=== PATIENT | female | born 1955 | race Caucasian/White ===

== ENCOUNTER 2017-05-21 15:15 | Inpatient (IN) | payer OTHER ==
[~2017-05-21] VITALS: Ht 162.6 cm; Wt 83.2 kg
[~2017-05-21 15:15] MED LIST: CYCLOBENZAPRINE5 MG PO; ECO81 PO; PAXIL40 MG PO; SERO100 PO
[2017-05-21 17:17] LABS: BASOPHIL % 0.4 % (0-2); PLATELET COUNT 220 x10^3mcL (130-400); RED CELL DISTRIBUTION WIDTH 14.2 % (11.5-14.5)
[2017-05-21 17:23] LABS: CALCIUM 8.7 mg/dL (8.5-10.1); CARBON DIOXIDE 30.5 mmol/L (21-32); CHLORIDE SERUM 105 mmol/L (98-107); CREATININE SERUM 0.5 mg/dL (0.6-1.0); GFR1 > 60 mL/min; GLUCOSE SERUM 101 mg/dL (74-106); POTASSIUM SERUM 3.6 mmol/L (3.5-5.1); SODIUM SERUM 142 mmol/L (136-145)
[2017-05-21 17:27] LABS: ALKALINE PHOSPHATASE 91 U/L (46-116); ALT/SGPT 28 U/L (14-59); AMYLASE 50 U/L (25-115); AST/SGOT 16 U/L (15-37); BILIRUBIN TOTAL 0.3 mg/dL (0.20-1.00); LIPASE 173 IU/L (73-393); TOTAL PROTEIN, SERUM 6.7 g/dL (6.4-8.2)
[2017-05-21 17:30] LABS: ALBUMIN 3.1 g/dL (3.4-5.0)
[2017-05-21 18:45] LABS: UA SPECIFIC GRAVITY 1.015 (1.005-1.035); microscopic required? YES; urine erythrocyte TRACE (NEGATIVE)
[2017-05-21] MEDS ORDERED: XAN1 PO (20:21)
[2017-05-21] MEDS ORDERED: NORCO1 TA2 PO (20:21)
[2017-05-21] MEDS ORDERED: PAXIL10 MG PO (20:21)
[2017-05-21 20:37] LABS: CHOLESTEROL/HDL RATIO 3.1; MAGNESIUM 1.8 mg/dL (1.8-2.4); PHOSPHOROUS 3.2 mg/dL (2.5-4.9)
[2017-05-21 20:40] LABS: AMPHETAMINE QUAL UR NONE DETECTED (NEG <=1000)
[2017-05-21 20:44] VITALS: BP 158/56
[2017-05-21 20:44] LABS: T3 TOTAL 1.41 ng/mL
[2017-05-21 20:53] LABS: FREE T4 0.81 ng/dL (0.76-1.46); FREE THYROXINE INDEX 1.8 ug/dL (1.4-4.5); T4(THYROXINE) 5.5 ug/dL (4.7-13.3)
[2017-05-21 21:16] VITALS: BP 158/56
[2017-05-21 21:19] VITALS: BP 158/56
[2017-05-22 06:11] LABS: BASOPHIL % 0.4 % (0-2); PLATELET COUNT 199 x10^3mcL (130-400); RED CELL DISTRIBUTION WIDTH 13.9 % (11.5-14.5)
[2017-05-22 06:27] VITALS: BP 155/75
[2017-05-22 06:39] LABS: CALCIUM 8.2 mg/dL (8.5-10.1); CARBON DIOXIDE 28.2 mmol/L (21-32); CHLORIDE SERUM 106 mmol/L (98-107); CREATININE SERUM 0.4 mg/dL (0.6-1.0); GFR1 > 60 mL/min; GLUCOSE SERUM 99 mg/dL (74-106); PHOSPHOROUS 3.4 mg/dL (2.5-4.9); POTASSIUM SERUM 3.5 mmol/L (3.5-5.1); SODIUM SERUM 143 mmol/L (136-145)
[2017-05-22 09:58] VITALS: BP 165/76
[2017-05-22 13:25] VITALS: BP 183/82
[2017-05-22 17:24] VITALS: BP 174/65
[2017-05-22 20:51] VITALS: BP 175/79
[2017-05-22 22:45] VITALS: BP 160/75
[2017-05-23 06:11] VITALS: BP 141/82
[2017-05-23 06:20] LABS: CALCIUM 8.3 mg/dL (8.5-10.1); CARBON DIOXIDE 28.4 mmol/L (21-32); CHLORIDE SERUM 107 mmol/L (98-107); CREATININE SERUM 0.5 mg/dL (0.6-1.0); GFR1 > 60 mL/min; GLUCOSE SERUM 112 mg/dL (74-106); POTASSIUM SERUM 3.6 mmol/L (3.5-5.1); SODIUM SERUM 141 mmol/L (136-145)
[2017-05-23 06:23] LABS: BASOPHIL % 0.5 % (0-2); PLATELET COUNT 204 x10^3mcL (130-400)
[2017-05-23 09:52] VITALS: BP 180/86
[2017-05-23 11:46] VITALS: BP 168/85
[2017-05-23] MEDS ORDERED: REG10 PO (12:58)
[2017-05-23 13:22] VITALS: BP 163/86
[2017-05-23 13:34] VITALS: BP 163/86
[2017-05-23] MEDS ORDERED: ZES20 PO (13:34)
== END 2017-05-23 15:30 | disposition home or self-care (01) | DRG 388 ==
LOC: ED 15:15 → DU 19:54
PROVIDERS: Emergency Medicine; ADMIT Family Medicine Sports Medicine
DX: K56.7 Ileus, unspecified (principal); N17.0 Acute kidney failure with tubular necrosis; F31.30 Bipolar disorder, current episode depressed, mild or moderate severity, unspecified; E44.1 Mild protein-calorie malnutrition; R31.9 Hematuria, unspecified; F12.10 Cannabis abuse, uncomplicated; F19.10 Other psychoactive substance abuse, uncomplicated; F17.210 Nicotine dependence, cigarettes, uncomplicated; F31.9 Bipolar disorder, unspecified; Z68.31 Body mass index [BMI] 31.0-31.9, adult; Z85.3 Personal history of malignant neoplasm of breast; E11.65 Type 2 diabetes mellitus with hyperglycemia
CPT/HCPCS: 82962; 83880; 84439; 94150; J0780; J1170; J1885; J2405; J2550; J2765; J3010; J7030; J7620; Q0092; Q9963

== ENCOUNTER 2018-12-28 03:34 | Inpatient (IN) | payer OTHER ==
[~2018-12-28] VITALS: Ht 162.6 cm; Wt 57.2 kg
[~2018-12-28 03:34] MED LIST changes: +NORCO1 TA2 PO; +PAXIL10 MG PO; +REG10 PO; +XAN1 PO; +ZES20 PO
--- NOTE | 2018-12-28 03:58 | NUR ---
PT BIB [facility] FOR C/O OF ALOC. PER MEDICS THEY WERE CALLED BY PD AND FOUND PT IN THE GRASS IN FRONT OF HER HOUSE. PER MEDICS PT HAD TAKEN AN UNKNOWN AMOUNT OF PAROXETINE AND ALCOHOL IN ATTMEPTS TO HURT HERSELF. PER MEDICS PTS BG WAS 69 ON SCENE SO THEY GAVE 17MG OF ORAL GLUCOSE AND REPORT PTS BG INCREASED TO 80. UPON ARRIVAL PT SLEEPING ON GURNEY AND PLACED INTO ROOM 4 IN FULL VIEW OF NURSING STATION. PT IS A/O X3 AND UNLABLE TO RECALL HOW MUCH PAROXETINE AND ALCOHOL SHE HAD. PT HAS A GCS OF 14. PT ADMITS SHE WAS TRYING TO HURT HERSELF BY OVERDOSING ON PAROXETINE AND ALCOHOL AND WHEN ASKED WHY STATES "THERE IS A LOT GOING ON" WITH SLOW,SLURRED SPEECH. PT IS NOT REPORTING ANY PAIN AT THIS TIME. SLY CALIXTO AT BEDSIDE TO PLACE PT ON 5150 HOLD. PT PLACED ON FULL MONOGRAM MAKER AND 4L OF O2 VIA NASAL CANULA FOR A O2.
[2018-12-28 04:20] LABS: BASOPHIL % 0.4 % (0-2); PLATELET COUNT 225 x10^3mcL (130-400)
[2018-12-28 04:21] LABS: RED CELL DISTRIBUTION WIDTH 14.9 % (11.5-14.5)
[2018-12-28 04:31] LABS: CALCIUM 9.2 mg/dL (8.5-10.1); CARBON DIOXIDE 23.5 mmol/L (21-32); CHLORIDE SERUM 113 mmol/L (98-107); CREATININE SERUM 0.4 mg/dL (0.6-1.0); GFR1 > 60 mL/min; GLUCOSE SERUM 91 mg/dL (74-106); POTASSIUM SERUM 3.7 mmol/L (3.5-5.1); SODIUM SERUM 152 mmol/L (136-145)
--- NOTE | 2018-12-28 04:32 | NUR ---
SPOKE TO CHRISTOPHER WITH POISON CONTROL AND HIS RECOMMENDATION IS TO DRAW FULL LABS WITH ALCOHOL, TYLENOL, AND SALICYLATE. ALONG WITH A DRUG SCREEN AND MONITOR PT FOR 6 HRS.
[2018-12-28 04:47] LABS: ALBUMIN 3.9 g/dL (3.4-5.0); ALKALINE PHOSPHATASE 74 U/L (46-116); ALT/SGPT 21 U/L (14-59); AST/SGOT 24 U/L (15-37); BILIRUBIN TOTAL 0.27 mg/dL (0.20-1.00); T4(THYROXINE) 5.2 ug/dL (4.7-13.3); TOTAL PROTEIN, SERUM 7.4 g/dL (6.4-8.2)
--- NOTE | 2018-12-28 05:33 | NUR ---
PT JOSHUA REMOVED AND PLACED IN RADIO ROOM.
--- NOTE | 2018-12-28 07:19 | NUR ---
RECIEVED REPORT FROM NIGHT RENATO OCASIO. AT BEDSIDE PT SLEEPING BUT EASILY AROUSABLE, CHEST RISE AND FALL VISIBLE. UPDATED VITALS.
--- NOTE | 2018-12-28 09:12 | NUR ---
PT SEEN TRYING TO GET OUT OF BED, GUIDED PT BACK INTO BED SAFELY. PT SP02 DROPPED DR. TURPIN MADE AWARE.PT PLACED ON 02. PT SOUNDS CONGESTED. DR. TURPIN MADE AWARE, NEW ORDERS IN PLACE.
--- NOTE | 2018-12-28 09:57 | NUR ---
CXR AT BEDSIDE PT LETHARGIC BUT HAS A GAG REFLEX, PT ON CM SEE VITALS
--- NOTE | 2018-12-28 09:58 | NUR ---
URINE NOT DIPPED I SENT IT FOR EMMA
--- NOTE | 2018-12-28 10:07 | NUR ---
PT SLEEPING BUT EASILY AROUSABLE. PT IN DIRECT VIEW OF NURSES STATION. CHEST RISE AND FALL VISIBLE. PT DID NOT EAT BREAKFAST. SKIN IS PINK, WARM AND DRY. HR=76 SP02= 95% ON 2L NC. RR=18
[2018-12-28 10:13] LABS: microscopic required? YES; urine erythrocyte 2+ (NEGATIVE)
--- NOTE | 2018-12-28 10:19 | NUR ---
DR. TURPIN AT BEDSIDE UPDATING PT ON PLAN OF CARE. PT VERBALIZES UNDERSTANDING. PT AAOX4, RESPS E/U, SKIN IS PINK, WARM AND DRY.
--- NOTE | 2018-12-28 10:30 | NUR ---
MEDICATED PT PER MD ORDERS. PT VERBALIZES UNDERSTANDING. PT COUGHING, SOUND CONGESTED.
--- NOTE | 2018-12-28 10:32 | NUR ---
RT AT BEDSIDE.
--- NOTE | 2018-12-28 11:04 | NUR ---
PT O2 SATS DROPPED AGAIN. PT PLACED ON HIGH-FOWLERS AND PLACE ON A NON-REBREATHER. DR. TURPIN MADE AWARE. NO NEW ORDERS AT THIS MOMENT.
--- NOTE | 2018-12-28 11:46 | NUR ---
PT STILL IN HIGH FOWLERS. SLEEPING BUT EASILY AROUSABLE IN DIRECT VIEW OF NURSES STATION.
--- NOTE | 2018-12-28 12:01 | NUR ---
PT NODDING OFF. AAOX4, RESPS E/U, SKIN IS PINK, WARM AND DRY. BED RAILS UP X2 FOR SAFETY.
--- NOTE | 2018-12-28 12:03 | NUR ---
PT NOTED TO HAVE YELLOW CLEAR EMESIS ON SIDE OF BED AND ON GOWN, PT AND GURNEY SHEETS CHANGED, PT CLEANED. PLACED BACK ON FULL CM, IV TO R WRIST PATENT, DR TURPIN MADE AWARE OF VOMITING, ORDERS PENDING, RENATO MANZANO ASSISTED WITH PT, PT IN POSITION OF COMFORT, CALL LIGHT WITHIN REACH, IN FULL VIEW FROM NURSES STATION, CURTAINS FULLY OPEN, PLACED 10L O2 VIA ON FACE MASK, TOLERATING WELL.
--- NOTE | 2018-12-28 12:26 | NUR ---
PT MEDICATED PER EMAR.
[2018-12-28 13:56] LABS: AMPHETAMINE QUAL UR NONE DETECTED (See below)
--- NOTE | 2018-12-28 14:36 | NUR ---
PT SLEEPING BUT EASILY AROUSABLE IN DIRECT VIEW OF NURSES STATION. PT SLEEPING ON LEFT SIDE. CHEST RISE AND FALL VISIBLE.
--- NOTE | 2018-12-28 15:50 | NUR ---
PT RESTING IN POSITION OF COMFORT. SLEEPING BUT EASILY AROUSABLE ON FULL MONITOR IN DIRECT VIEW OF NURSES STATION.
--- NOTE | 2018-12-28 17:58 | NUR ---
DR. MOCK AT BEDSIDE FOR REASSESMENT. NEW ORDERS IN PLACE. PT STILL DROWSY, BUT AAOX4.
--- NOTE | 2018-12-28 18:16 | NUR ---
RT AT BEDSIDE DOING TREATMENTS. ALSO, XRAY. PT DROWSY.
--- NOTE | 2018-12-28 18:20 | NUR ---
PER PT "I'M NOT OXYGEN AT HOME" ALSO, REPORTS HAVING COPD AND EMPHYSEMA. USES INHALERS TO TREAT AT HOME. DR. MOCK MADE AWARE.
--- NOTE | 2018-12-28 18:34 | NUR ---
PER DR. MOCK PLACE PT ON BI-PAP. RT AT BEDSIDE SETTING UP.
--- NOTE | 2018-12-28 18:35 | NUR ---
PT REMOVED BI-PAP MASKED. REPORTS "I HAVE TO PEE" EXPLAINED TO PT THAT SHE HAS A LAL CATH IN PLACE.
--- NOTE | 2018-12-28 18:38 | NUR ---
PT REMOVED BI-PAP MASK AGAIN. UTILIZED PILLOWS TO PROP PT TO HAVE HER NO REMOVE MASK.
--- NOTE | 2018-12-28 18:40 | NUR ---
PT REMOVED BI-PAP MASK OFF AGAIN. PER DR. NISH MARX TO APPLY SOFT RESTRAINTS IN ORDER FOR PROPER TREATMENT.
--- NOTE | 2018-12-28 18:50 | NUR ---
APPLICATION OF BILATERAL SOFT WRIST RESTRAINTS INITIATED.
--- NOTE | 2018-12-28 18:55 | NUR ---
RESTRAINT FORM IN PATIENT CHART.
--- NOTE | 2018-12-28 19:12 | NUR ---
RECEIVED PT REPORT FROM YOLA GROSS. I WILL NOW ASSUME PRIMARY CARE OF PT
--- NOTE | 2018-12-28 19:13 | NUR ---
HAND-OFF REPORT TO RENATO SAUCEDA.
--- NOTE | 2018-12-28 19:46 | NUR ---
PATIENT IS RESTLESS ROLLING AROUND IN THE BED, TRYING TO REMOVE THE BIPAP. RESPIRATORY AT THE BEDSIDE DOING ABG.
--- NOTE | 2018-12-28 19:59 | NUR ---
PT SEEN PULLING BIPAP MASK OFF FROM HER FACE,WHEN APPRACHED PT , PT STATED SHE NEEDED TO THROW UP. PT PROVIDED WITH EMESIS BAG AND PT VOMITED APPROX 30ML OF YELLOW CLEAR BILE. PT WAS THEN CLEANED UP, CHANGED INTO CLEAN GOWN AND REPLACED BIPAP ON PT AND REPOSITIONED FOR COMFORT.
--- NOTE | 2018-12-28 20:36 | NUR ---
PATIENT VOMITED BILE FLUID. ,LINEN AND GOWN CHANGED. PATIET IS RESTLESS ROLLING AROUND IN BED. ZOFRAN GIVEN. PATIENT REQUESTED SHARON LYONS MD ON SAME. ICE IRASEMA WAS GIVEN.
--- NOTE | 2018-12-28 20:40 | NUR ---
PATIENT REMAINS ON THE BI-PAP. OXYGEN SATURATION DECREASES TO THE 80'S WHEN PATIENT TAKES IT OFF. PATIENT IS RESTLESS, INSTRUCTED TO LEAVE THE BIPAP ON.
--- NOTE | 2018-12-28 21:18 | NUR ---
TITRATED FIO2 VIA BIPAP TO 70% PER ABG pO2 RESULT OF 164.4. SPO2 98%.
--- NOTE | 2018-12-28 22:00 | NUR ---
PATIENT REMOVED THE BIPAP. SATURATION 875. PATIENT IS DROWSY, RESTLESS PUTTING HER LEGS OVER THE BEDRAIL. MD WANTS SET UP FOR INTUBATION.
--- NOTE | 2018-12-28 22:10 | NUR ---
MD, RESPIRATORY, NURSE AND LUNA AT THE BEDSIDE. PATIENT BAGGED. ETOMODATE GIVEN IVP.
--- NOTE | 2018-12-28 22:11 | NUR ---
PATIENT MEDICATED NSHG000 MG SUCCINYLCHOLINE IVP
--- NOTE | 2018-12-28 22:12 | NUR ---
DR OLIVO AT BEDSIDE FOR INTUBATION.
--- NOTE | 2018-12-28 22:13 | NUR ---
ETOMIDATE 20 MG IVP.
--- NOTE | 2018-12-28 22:41 | NUR ---
PATIENT IS AGITATED, TRYING TO SIT UP IN THE BED. DRIPOVAN DRIP STARTED. BILATERAL WRIST RESTRAINTS APPLIED.
[2018-12-28 23:20] VITALS: BP 185/106
[2018-12-28 23:31] VITALS: BP 185/106
--- NOTE | 2018-12-28 23:40 | NUR ---
SALINE LOCK INSERTED IN THE LEFT AC FOR THE CTA.
[2018-12-29] VITALS (18 sets, daily range): BP systolic 116–197; BP diastolic 70–110
--- NOTE | 2018-12-29 00:06 | NUR ---
NG TUBE IBSERTED ORALLY, PATIENT GAGING, BLIE FLUID SUCTION ORALLY AND FROM THE NG TUBE. PLACEMENT CHECK BY ASCULTATION. PATIENT MEDICATED WITH LABATELOL FOR ELIVATED BLOOD PRESSURE.
--- NOTE | 2018-12-29 00:41 | NUR ---
PATIENT HAD CTA DONE AND RETURN TO THE ROOM.
--- NOTE | 2018-12-29 01:20 | NUR ---
REPORT WAS GIVEN TO JUANITA. PATIENT TRANSPORTED TO ROOM ICU# 3. DRIPIVAN INFUSINF @ 50 MCG/MIN.
--- NOTE | 2018-12-29 01:20 | NUR ---
PT TRANSFERRED FROM ER VIA [facility] ACCOMPANIED BY RN, EMT, AND RT. PT TRANSFERRED TO ICU BED WITH FULL ASSIST. PT INTUBATED AND SEDATED ON PROPOFOL 55 MCG/KG/HR WITH RSS 5. PERRLA NOTED. 7.5 ETT SECURED AT [address] TRACHEA MIDLINE. NO JVD NOTED. OGT INTACT AND SECURED. EENT FREE OF DISCHARGE. VAP CARE PROVIDED. ETT TO VENT: AC MODE RATE 12, TV 450, PEEP 5, FIO2 50%. RESPS E/U. CHEST RISE EQUAL AND SYMMETRICAL. LUNG SOUNDS CTA. MULTIMEDIA AUTHOR IN PLACE, NSR WITH HR 80, BP 156/106 MAP 131. PT WITH EPISODES OF ELEVATED BP, DR MIXON MADE AWARE. CHEST WALL STABLE. PULSES PALPABLE X4. CAP REFILL <3 SECS. NO EDEMA NOTED. GEN WEAKNESS NOTED. TURNED AND REPOSITIONED Q2H. BUE SOFT WRIST RESTRAINTS IN PLACE FOR PT SAFETY.ABD FLAT, SOFT, NONTENDER TO TOUCH. BOWEL SOUNDS HYPOACTIVE. F/C INTACT AND DRAINING VIA GRAVITY YELLOW URINE. NO VAGINAL BLEEDING OR DISCHARGE NOTED. SKIN WARM DRY TO TOUCH. SKIN INTACT. ALL NEEDS MET AT THIS TIME. WILL CONTINUE TO MONITOR.
--- NOTE | 2018-12-29 01:45 | NUR ---
DR MIXON AT BEDSIDE, UPDATED ON STATUS, ALL QUESTIONS AND CONCERNS ADDRESSED.
--- NOTE | 2018-12-29 03:30 | NUR ---
PT TAKEN TO CT VIA [facility] ACCOMPANIED BY RT AND CREW CHIEF. PT TRANSFERRED BACK SAFELY WITH NO ADVERSE EVENTS.
[2018-12-29 04:19] LABS: PHOSPHOROUS 5.1 mg/dL (2.5-4.9)
[2018-12-29 04:20] LABS: CHOLESTEROL/HDL RATIO 2.4
--- NOTE | 2018-12-29 04:30 | NUR ---
RSS 5, PROPOFOL TITRATED TO 45 MCG/KG/HR.
--- NOTE | 2018-12-29 04:36 | NUR ---
PROPOFOL TITRATED TO 50 MCG/KG/HR.
--- NOTE | 2018-12-29 06:32 | NUR ---
PT VOMIT SMALL AMT BILE COLORED FROM MOUTH. ZOFRAN IVP GIVEN. DR MIXON MADE AWARE.
[2018-12-29 06:33] LABS: CALCIUM 9.7 mg/dL (8.5-10.1); CARBON DIOXIDE 27.7 mmol/L (21-32); CHLORIDE SERUM 104 mmol/L (98-107); CREATININE SERUM 0.4 mg/dL (0.6-1.0); GFR1 > 60 mL/min; GLUCOSE SERUM 224 mg/dL (74-106); MAGNESIUM 1.6 mg/dL (1.8-2.4); PHOSPHOROUS 2.8 mg/dL (2.5-4.9); POTASSIUM SERUM 3.6 mmol/L (3.5-5.1); SODIUM SERUM 141 mmol/L (136-145)
[2018-12-29 06:36] LABS: PLATELET COUNT 223 x10^3mcL (130-400)
[2018-12-29 07:23] LABS: RED CELL DISTRIBUTION WIDTH 14.8 % (11.5-14.5)
--- NOTE | 2018-12-29 07:30 | NUR ---
PATIENT IN BED, BED TO THE LOWEST POSITION. PATIENT IS INTUBATED AND ON AC MODE AT A RATE OF 12, TIDAL VOLUME OF 450, FIO2 OF 50% AND PEEP OF 5. PATIENT IS BREATHING ADEQUATELY AND THERE ARE NO SIGNS OF RESPIRATORY DISTRESS. COTTON ROLL PACKER IN PLACE, NSR. PATIENT HAS BILATERAL SOFT WRIST RESTRAINTS NOTED. IV ACCESS NOTED TO LFA X2. PATIENT IS SEDATED ON PROPOFOL INFUSING AT 45 MCG/KG/MIN, RSS:5. PATIENTS ABD IS SOFT AND FLAT. HEELS OFF LOADED WITH PILLOWS. PATIENT STABLE, WILL CONTINUE TO MONITOR.
--- NOTE | 2018-12-29 10:11 | NUR ---
PATIENT VOMMITED LIQUID/ GREEN IN COLOR. PATIENT CLEANSED, LINENS CHANGED, HOB ELEVATED, AND PATIENT REPOSITIONED. PATIENTS BACK AND SKIN FULLY ASSESSED, NO WOUNDS NOTED AND SKIN INTACT. PATIENTS HEELS OFFLOADED WITH PILLOWS. PATIENT STABLE, WILL CONTINUE TO MONITOR.
--- NOTE | 2018-12-29 10:11 | NUR ---
PATIENT HAS 2 RINGS, TAKEN OFF AND PLACE AT BEDSIDE IN CONTAINER.
--- NOTE | 2018-12-29 11:32 | NUR ---
LOWERED PATIENTS PROPOFOL TO 40 MCG/KG/MIN. PATIENT STABLE, WILL CONTINUE TO MONITOR.
--- NOTE | 2018-12-29 11:45 | NUR ---
POISON CONTROLLED CALLED AT THIS TIME, ALL UPDATES PROVIDED. THEY RECOMMEND, SUPPORTIVE CARE AND IF THE PATIENT UNDERGOES A SEIZURE, TO HAVE BENZOS GIVEN. NO FURTHER ORDERS OR RECOMMENDATIONS AT THIS TIME. PATIENT STABLE, WILL CONITNUE TO MONITOR.
--- NOTE | 2018-12-29 13:30 | NUR ---
PATIENT REPOSITIONED AT THIS TIME. SKIN ASSESSED. NO WOUNDS NOTED.
[2018-12-29 14:28] LABS: BAND NEUTROPHIL 16 % (0-10); MONOCYTE 4 % (0-7); SEGMENTED NEUTROPHILS 75 % (37-75)
[2018-12-29 14:29] LABS: PLATELET MORPHOLOGY PLATELETS NORMAL; rbc morphology (normal/abnorm) NORMAL (NORMAL)
--- NOTE | 2018-12-29 15:15 | NUR ---
TUBE FEEDING INITIATED AT THIS TIME. VITAL AF. 10 ML/HR WITH 50 FWF Q4. WILL CONTINUE TO MONITOR.
--- NOTE | 2018-12-29 16:18 | NUR ---
PATIENT REMOVED OGT AT THIS TIME. PATIENT ASSESSED, PATIENT STABLE, WILL INSERT NEW OGT.
--- NOTE | 2018-12-29 16:25 | NUR ---
NEW OGT INSERTED AT THIS TIME, XRAY ORDERED, FOR PLACEMENT VERIFICATION.
--- NOTE | 2018-12-29 16:28 | NUR ---
PATIENT REMOVED OGT AT THIS TIME. PATIENT ASSESSED, VITALS STABLE, PATIENT STABLE. WILL REPUT IN NEW OGT.
--- NOTE | 2018-12-29 16:53 | NUR ---
INCREASED SEDATION TO 45 MCG/KG/MIN. PATIENT RESTLESS, AND TRYING TO PULL TUBES. WILL CONTINUE TO MONITOR.
--- NOTE | 2018-12-29 19:05 | NUR ---
REPORT GIVEN TO RENATO GRANT. ALL QUESTIONS ANSWERED.
--- NOTE | 2018-12-29 19:35 | NUR ---
PT INTUBATED AND SEDATED ON PROPOFOL 45 MCG/KG/HR WITH RSS 4. PERRLA NOTED. 7.5 ETT SECURED AT [address] TRACHEA MIDLINE. NO JVD NOTED. OGT INTACT AND SECURED. EENT FREE OF DISCHARGE. VAP CARE PROVIDED. ETT TO VENT: AC MODE RATE 12, TV 450, PEEP 5, FIO2 50%. RESPS E/U. CHEST RISE EQUAL AND SYMMETRICAL. LUNG SOUNDS CLEAR BUL, DIM BASES. LEARNING PROGRAM MANAGER IN PLACE, ST WITH HR 109, BP 157/87 MAP 109. CHEST WALL STABLE. PULSES PALPABLE X4. CAP REFILL <3 SECS. NO EDEMA NOTED. GEN WEAKNESS NOTED. TURNED AND REPOSITIONED Q2H. BUE SOFT WRIST RESTRAINTS IN PLACE FOR PT SAFETY.ABD FLAT, SOFT, NONTENDER TO TOUCH. BOWEL SOUNDS HYPOACTIVE. F/C INTACT AND DRAINING VIA GRAVITY YELLOW URINE. NO VAGINAL BLEEDING OR DISCHARGE NOTED. SKIN WARM DRY TO TOUCH. SKIN INTACT. ALL NEEDS MET AT THIS TIME. WILL CONTINUE TO MONITOR.
--- NOTE | 2018-12-29 23:00 | NUR ---
TF TITRATED TO 20ML/HR, GRV=0
[2018-12-30] VITALS (19 sets, daily range): BP systolic 77–144; BP diastolic 41–77; Ht 162.6 cm; Wt 57.2 kg
--- NOTE | 2018-12-30 01:00 | NUR ---
TIM RT TITRATED FIO2 TO 30%.
--- NOTE | 2018-12-30 03:35 | NUR ---
TF TITRATED TO 30ML/HR, GOAL MET. GRV=0.
--- NOTE | 2018-12-30 05:30 | NUR ---
TOTAL BED BATH PROVIDED, LINENS CHANGED. F/C CARE PROVIDED. REPOSITIONED AT THIS TIME.
[2018-12-30 05:34] LABS: BASOPHIL % 0.2 % (0-2); PLATELET COUNT 180 x10^3mcL (130-400)
[2018-12-30 05:36] LABS: RED CELL DISTRIBUTION WIDTH 14.8 % (11.5-14.5)
[2018-12-30 05:54] LABS: CALCIUM 10.1 mg/dL (8.5-10.1); CARBON DIOXIDE 28.4 mmol/L (21-32); CHLORIDE SERUM 107 mmol/L (98-107); CREATININE SERUM 0.4 mg/dL (0.6-1.0); GFR1 > 60 mL/min; GLUCOSE SERUM 117 mg/dL (74-106); MAGNESIUM 2.1 mg/dL (1.8-2.4); PHOSPHOROUS 2.7 mg/dL (2.5-4.9); POTASSIUM SERUM 3.6 mmol/L (3.5-5.1); SODIUM SERUM 145 mmol/L (136-145)
--- NOTE | 2018-12-30 06:46 | NUR ---
DR BANSAL AT BEDSIDE, UPDATED ON STATUS, MADE AWARE REGARDING ELEVATED BUN WITH IVF NS @ 20ML. ORDER CHANGED TO NS @ 50 ML/HR.
--- NOTE | 2018-12-30 08:00 | NUR ---
INITIAL SHIFT ASSESSMENT DONE (SEE ASSESSMENT PART). SEDATED WITH PROPOFOL DRIP, TOLERATING WELL. OCCASIONAL AGITATION NOTED. ON VENTILATOR, TOLERATING CURRENT SETTINGS WELL. O2 SAT 96%. ST ON MONITOR. SBP IN 120'S-140'S. NO ECTOPY NOTED. ON TUBE FEEDING VIA OGT, TOLERATING WELL. NO RESIDUALS NOTED. HOB ELEVATED. ON BILATERAL SOFT WRIST RESTRAINTS. UPDATED OF PLAN OF CARE. WILL CONTINUE TO MONITOR.
--- NOTE | 2018-12-30 09:37 | NUR ---
PATIENT ROUNDS WITH DR. UMANA AND RESIDENTS. CHARGE NURSE AND PRIMARY NURSE AT BEDSIDE. UPDATES PROVIDED AND POC DISCUSSED.
--- NOTE | 2018-12-30 10:00 | NUR ---
BECOMES RESTLESS AT THIS TIME. PROPOFOL DRIP INCREASE TO 50 MCG/KG/MIN. WILL CONTINUE TO MONITOR.
--- NOTE | 2018-12-30 12:00 | NUR ---
REASSESSMENT DONE. NEURO STATUS STILL THE SAME. NO SIGNS OF PAIN. OCCASIONAL AGITATION NOTED. TOLERATING CURRENT VENTILATOR SETTINGS WELL. O2 SAT 96-97%. ST ON MONITOR. SBP IN 110'S-150'S. NO ECTOPY NOTED. TOLERATING TUBE FEEDING WELL. NO RESIDUALS NOTED. HOB ELEVATED. UPDATED OF PLAN OF CARE. WILL CONTINUE TO MONITOR.
--- NOTE | 2018-12-30 13:08 | NUR ---
DR QUEEN IS IN THE ROOM. UPDATED OF STATUS. NEW ORDERS RECEIVE.
--- NOTE | 2018-12-30 13:31 | NUR ---
VERSED AND FENTANYL DRIP STARTED AT THIS TIME AND PROPOFOL DRIP D/C PER DR QUEEN'S ORDER. WILL CONTINUE TO MONITOR.
--- NOTE | 2018-12-30 13:35 | NUR ---
SON AND [id number]-[id number]-IBN ARE IN THE ROOM. UPDATED OF STATUS AND PLAN OF CARE.
--- NOTE | 2018-12-30 14:00 | NUR ---
RESTING IN BED. NO SIGNS OF PAIN. OCCASIONAL AGITATION NOTED. TOLERATING VENTILATOR WELL. O2 SAT 94-99%. ST ON MONITOR. SBP IN 130'S-160'S. NO ECTOPY NOTED. HOB ELEVATED. WILL CONTINUE TO MONITOR.
--- NOTE | 2018-12-30 15:00 | NUR ---
MOM IS IN THE ROOM. UPDATED OF STATUS AND PLAN OF CARE.
--- NOTE | 2018-12-30 15:50 | NUR ---
SISTER OF THE PATIENT IS IN THE ROOM. UPDATED OF STATUS AND PLAN OF CARE.
--- NOTE | 2018-12-30 16:00 | NUR ---
REASSESSMENT DONE. NEURO STATUS UNCHANGED. OCCASIONAL AGITATION NOTED. NO SIGNS OF PAIN. TOLERATING CURRENT VENTILATOR SETTINGS WELL. O2 SAT 95-96%. ST ON MONITOR. SBP IN 130'S-160'S. NO ECTOPY NOTED. HOB ELEVATED. TOLERATING TUBE FEEDING WELL. RESIDUALS OF 15 ML. UPDATED OF PLAN OF CARE. WILL CONTINUE TO MONITOR.
--- NOTE | 2018-12-30 18:00 | NUR ---
SLEEPING BUT EASILY AROUSABLE. NO SIGNS OF PAIN. OCCASIONAL AGITATION NOTED. TOLERATING VENTILATOR WELL. O2 SAT 95-97%. ST ON MONITOR. SBP IN 90'S-110'S. NO ECTOPY NOTED. HOB ELEVATED. WILL CONTINUE TO MONITOR.
--- NOTE | 2018-12-30 19:05 | NUR ---
REPORT GIVEN TO INCOMING COMPLIANCE INVESTIGATOR RN, RENATO ROCHE.
--- NOTE | 2018-12-30 19:05 | NUR ---
RECEIVED REPORT FROM GUERA GROSS. ALL QUESTIONS ANSWERED AND ADDRESSED. WILL RESUME CARE OF PT.
--- NOTE | 2018-12-30 21:26 | NUR ---
PT BP OF 69/35 (48). INITIATING 1L BOLUS[address] DR. YBARRA MADE AWARE. LEVOPHED ORDER PRN. WILL CONT TO MONITOR.
--- NOTE | 2018-12-30 21:37 | NUR ---
LEVOPHED INITIATED @ 2MCG/MIN TO ACHIEVE MAP >65. BP = 71/44 (55). FENTANYL AND VERSED OFF AT THIS TIME. WILL CONT TO MONITOR.
--- NOTE | 2018-12-30 22:06 | NUR ---
BP = 83/47 (6). TITRATED LEVOPHED TO 4MCG/MIN TO ACHIEVE MAP 65>. WILL CONT TO MONITOR
--- NOTE | 2018-12-30 22:28 | NUR ---
SEDATION INITIATED DUE TO PT BEING RESTLESS AND ANXIOUS. VERSED @ 1MG/HR AND FENTANYL @ 1MCG/KG/HR TO ACHIEVE RSS = 4.
[2018-12-31] VITALS (9 sets, daily range): BP systolic 78–106; BP diastolic 36–58
--- NOTE | 2018-12-31 00:01 | NUR ---
DR. ARROYO AT BEDSIDE ASSESSING PT. PER DR. MIXON, STOP THE LEVOPHED AND GIVE PT 1L BOLUS TO SEE IF MAP MAINTAINS ABOVE 65.
[2018-12-31 06:10] LABS: BASOPHIL % 0.3 % (0-2); PLATELET COUNT 148 x10^3mcL (130-400)
[2018-12-31 06:13] LABS: RED CELL DISTRIBUTION WIDTH 14.8 % (11.5-14.5)
[2018-12-31 06:14] LABS: CALCIUM 8.2 mg/dL (8.5-10.1); CARBON DIOXIDE 30.9 mmol/L (21-32); CHLORIDE SERUM 110 mmol/L (98-107); CREATININE SERUM 0.3 mg/dL (0.6-1.0); GFR1 > 60 mL/min; GLUCOSE SERUM 101 mg/dL (74-106); MAGNESIUM 1.8 mg/dL (1.8-2.4); PHOSPHOROUS 2.7 mg/dL (2.5-4.9); POTASSIUM SERUM 3.2 mmol/L (3.5-5.1); SODIUM SERUM 146 mmol/L (136-145)
--- NOTE | 2018-12-31 07:10 | NUR ---
CRX AT BEDSIDE.
--- NOTE | 2018-12-31 07:28 | NUR ---
GIVEN REPORT TO CHUYITA GROSS. ALL QUESTIONS ANSWERED AND ADDRESSED. WILL ENDORSECARE.
--- NOTE | 2018-12-31 08:25 | NUR ---
PLACED PT ON CPAP +5 WITH PSV +12 AND FIO2 30%.
--- NOTE | 2018-12-31 08:30 | NUR ---
FENTANYL AND VERSED PAUSED, DARRELL RT PUT PT ON CPAP TO TRIAL FOR EXTUBATION. TUBE FEEDING PAUSED.
--- NOTE | 2018-12-31 09:29 | NUR ---
RESPIRATORY THERAPY STUDENT AT BEDSIDE DRAWING ABG ON LEFT RADIAL ARTERY, DARRELL FRIEDMAN SUPERVISING.
--- NOTE | 2018-12-31 10:44 | NUR ---
PROVIDED UPDATES OF PT STATUS AND VITAL SIGNS TO DAVID FROM POSION CONTROL. PER DAVID WILL CALL BACK LATER IN DAY FOR MORE UPDATES, HE DID NOT HAVE ANY RECOMMENDATION.
--- NOTE | 2018-12-31 10:48 | NUR ---
DARRELL RT, TACO RN, AND RT STUDENT AT BEDSIDE, PT EXTUBATED AT 10:48. OXYGEN SATURATION IS 100%, RESPIRATORY RATE 13. BREATH SOUNDS AUSCULTATED, NO STRIDOR. BREATH SOUNDS CLEAR BUT DIMINISHED, PT EDUCATED ON USING ORAL SUCTION DEVICE TO HELP CLEAR SECRETIONS, PT VERBALIZED UNDERSTANDING. DR. QUEEN AND TACO RN INSTRUCTED PT TO USE IS DEVICE EVERY HOUR. PT VERBALIZED UNDERSTANDING AND DID RETURN DEMONSTRATION OF IS DEVICE.
--- NOTE | 2018-12-31 11:17 | NUR ---
MAINTENANCE 0.9% NS TO BE TURNED DOWN TO 80 MLS/HR PER DR. QUEEN AFTER 1000ML BOLUS.
--- NOTE | 2018-12-31 12:42 | NUR ---
DR. BANSAL IS AT BEDSIDE TALKING TO THE PATIENT AND INFORMED THAT PO MEDS SCHEDULED AT 1200 AND 1400 WILL BE POSTPONED UNTIL BEDSIDE SWALLOW SCREEN IS IMPLEMENTED. DOCTOR AGREES WITH THAT.
--- NOTE | 2018-12-31 12:43 | NUR ---
DR. BANSAL AT BEDSIDE ASSESSING PT AND UPDATING PT ON HOLD STATUS, TOLD HER A PSYACHRIST WILL COME TO DO AN EVALUATION.
--- NOTE | 2018-12-31 13:54 | NUR ---
Initial Nutrition Assessment: IC03/A USAMA AGUILAR HR Dx: Chief complaint ALOC, suicide attempt PMHx: psychiatric history of unspecified bipolar disease, depression, and anxiety R breast CA COPD PSHx: Appendectomy, Cholecystectomy, Other (R foot surgery) Labs: NA 146H, K 3.2L, CA 8.2L Meds: Aspirin, Ativan, Colace, folic acid, levophed, Pepcid, vitamin B-1, Zofran Diet: TF (OGT) Vital AF 1.2 @ 10ml/hr, goal 50 ml/hr, advance Q4H, FWF 50 cc Q4H PO Intake: pt extubated, was NPO prior to that Ht: 162.56 cm (64") Wt: 55 kg (121#) BMI: 20.8 kg/m2 Bed scale: 121# IBW: 120# (55 kg) %IBW: 100 UBW: Pt unaware Age: 63/F Food Allergies: NKFA Skin: Raul: Edema: GI: Last BM: Per H&P, Pt is a 63yoF with PMH reported in the ED of psychiatric history of unspecified bipolar disease, depression, and anxiety, R breast CA, and COPD who presented to the ED via EMS 24 hours prior on 5150 hold due to suicidal ideation and attempt with handful of prescribed paroxetine at home. RDN Visit (12/31): Patient was extubated and off sedation. Patient was lethargic. Patient said that she had fair appetite and reported that she has lost weight in the past month but was not sure how much. Per RN, Pt will have swallow eval today. Problem with: N/V/D/C: no Problems with: Chewing/Swallowing: pt will undergo swallow eval Current appetite: fair Recent wt change: weight loss, unaware about lbs. lost %wt change: unable to access Vitamin/Supplement use: none Special diet at home: regular, small meals Physical activity: unable to access as patient was tired to speak Nutrition education given: Not appropriate at this time as patient was sleepy. Will be provided during a follow up visit. Food-drug interactions: Colace- high fiber w/1200-1500ml fluids, Ativan- limit caffeine to <400-500 mg/day Education given: no Estimated Nutritional Needs Based on actual body weight 55 kg Energy: 1948-9161 kcal/d (25-30 kcal/day) Protein: 55-66 g/d (1.0-1.2 g/kg)- preserve LBM Fluid: 9419-7429 ml/d (1 ml/kcal) or per doctor Nutrition Diagnosis 1. Unintentional weight loss related to poor PO as evidenced by self-reported weight loss. Intervention 1. Recommend Regular diet (texture to be determined by DIRECTOR OF ARCHITECTURE eval) when medically appropriate/tolerated. Monitor/Evaluate Goal: PO intake at least 75% of estimated needs Monitor: PO intake, Labs, GI function F/U in 2-3 days as high risk 01/02-
--- NOTE | 2018-12-31 13:55 | NUR ---
1. Recommend Regular diet (texture to be determined by DECK AND HULL ASSEMBLER eval) when medically appropriate/tolerated.
--- NOTE | 2018-12-31 13:57 | NUR ---
TACO GROSS AND YULY RN CONDUCTED BEDSIDE SWALLOW EVAL. PT ABLE TO SWALLOW ICE CHIPS, APPLESAUCE, JELLO, AND WATER WITHOUT DIFFICULTY. NO S/S ASPIRATION, NO COUGHING.
--- NOTE | 2018-12-31 14:03 | NUR ---
DR. TONY IS AT BEDSIDE EVALUATING THE PATIENT.
--- NOTE | 2018-12-31 16:00 | NUR ---
PHYSICAL THERAPIST IS AT BEDSIDE WALKING THE PATIENT.
--- NOTE | 2018-12-31 19:16 | NUR ---
PATIENT TOLERATED 50% OF REGULAR DIET TRAY FOR DINNER WITH NO S/S OF DIFFICULTY/ COUGH. LAL CARE PROVIDED TO THE PATIENT. PATIENT REMAINS ON OXYGEN AT 2L/MIN VIA NASAL CANNULA AND O2 SAT >95%. REPORT GIVEN TO BRIANNA HANNA RN. QUESTIONS ARE ADDRESSED.
--- NOTE | 2018-12-31 19:42 | NUR ---
RECEIVED REPORT FROM RENATO ESPAÑA. PT IS ALERT AND ORIENTED X4. PUPILS REACTIVE TO LIGHT. PT IS BREATHING E/U ON 2L NC. LUNG SOUNDS CLEAR TO BILATERAL UPPER LOBES, DIMINISHED TO BILATERAL LOWER LOBES WITH PRODUCTIVE COUGH. PT ABLE TO COUGH OUT SECRETIONS. S1 S2 HEART SOUNDS AUSCULTATED. PULSES MODERATE X4. CAP REFILL <3 SECONDS X4. SKIN IS WARM AND PINK. PERIPHERAL IV TO LEFT HAND AND LEFT FA PATENT, DRESSING CDI. NS INFUSING AT 80 ML/HR. ABD IS SOFT AND FLAT WITH ACTIVE BOWEL SOUNDS X4. LAL DRAINING VIA GRAVITY, URINE YELLOW WITH FAIR OUPUT. SKIN INTACT. ALL QUESTIONS AND CONCERNS ANSWERED.
--- NOTE | 2018-12-31 20:06 | NUR ---
PT HAVING OCCASSIONAL RUNS OF TACHYCARDIA WITH HR'S IN THE 130'S. ASKED PT IF SHE IS HAVING CHEST PAIN, OR FEELINGS OF PALPITATIONS, AND PT DENIES. WILL CONTINUE TO MONITOR PT CLOSELY.
--- NOTE | 2018-12-31 21:30 | NUR ---
PT TAKEN OFF OXYGEN FOR O2 SATURATIONS OF 96 % ON RA.
--- NOTE | 2018-12-31 23:16 | NUR ---
PT PLACED BACK ON 2L NC FOR O2 SATURATION OF 89 %. WILL CONTINUE TO MONITOR.
[2019-01-01 05:48] LABS: BASOPHIL % 0.5 % (0-2); PLATELET COUNT 154 x10^3mcL (130-400)
[2019-01-01 05:53] LABS: CALCIUM 8.6 mg/dL (8.5-10.1); CHLORIDE SERUM 113 mmol/L (98-107); CREATININE SERUM 0.4 mg/dL (0.6-1.0); GFR1 > 60 mL/min; GLUCOSE SERUM 84 mg/dL (74-106); MAGNESIUM 1.7 mg/dL (1.8-2.4); PHOSPHOROUS 3.3 mg/dL (2.5-4.9); POTASSIUM SERUM 3.5 mmol/L (3.5-5.1); SODIUM SERUM 149 mmol/L (136-145)
[2019-01-01 06:17] LABS: RED CELL DISTRIBUTION WIDTH 15.2 % (11.5-14.5)
--- NOTE | 2019-01-01 06:46 | NUR ---
DR. BANSAL ASSESSING PT AT BEDSIDE. UPDATES PROVIDED.
--- NOTE | 2019-01-01 07:10 | NUR ---
GAVE REPORT TO DEVI GROSS. ALL QUESTIONS AND CONCERNS ADDRESSED.
--- NOTE | 2019-01-01 07:35 | NUR ---
PT IS AAOX4, FOLLOWS COMMANDS, VERBALLY RESPONSIVE, CAN MAKE NEEDS KNOWN. PERRLA, 3MM BILATERALLY. RESP EVEN AND UNLABORED. LUNG SOUNDS CTA BILATERALLY. CHEST RISE SYMETRIC. TRACHEA MIDLINE. ON O2 N/C 1LPM. PERIPHERAL PULSES PALPABLE, MODERATE. NO EDEMA NOTED. CAP REFILL <3, IMMEDIATE. SCDS IN PLACE. MONITOR [address] READ[address] NSR[address] DENIES CHEST PAIN, PRESSURE, PALPITATIONS. NO DRAINAGE, REDNESS OR DEFICITS NOTED TO EENT. SKIN CDI, WARM AND DRY, CONSISTENT WITH ETHNICITY. ABDOMEN SOFT, NONTENDER, NONDISTENDED. BOWEL SOUNDS ACTIVE X4. DENIES N/V. IVF RUNNING TO LFA, SITE PATENT WITH NO S/S OF INFECTION OR INFILTRATION. DRESSING CDI. IV CATH TO L HAND N/S LOCKED. SITE WNL. NO S/S OF INFECTION NOTED. DRESSING CDI. FALL PRECAUTIONS IN PLACE. CALL LIGHT WITHIN REACH. BED IN LOWEST POSITION. HOB ELEATATED AT 30 DEGREES. WILL CONT TO MONITOR.
[2019-01-01 08:00] VITALS: BP 114/60
--- NOTE | 2019-01-01 09:43 | NUR ---
RESP EVEN AND UNLABORED. PT NOTED WITH PRODUCTIVE COUGH WITH THICK YELLOW MUCOUS. N/C [address] NO SOB. DUE MEDS GIVEN AND TOLERATED WELL. PT DENIES PAIN OR DISCOMFORT AT THIS TIME. DR. TERRY AND MEDICAL TEAM MET WITH PT. PT TO TRANSFER TO MED/SURG/TELE TODAY 01/01/19. PT AGREED WITH POC. CALL LIGHT WITHIN REACH.
--- NOTE | 2019-01-01 11:01 | NUR ---
SPOKE WITH HANS FROM POISION CONTROL AND PROVIDED HER UPDATES, NO FURTHER SUGGESSTIONS AT THIS TIME.
--- NOTE | 2019-01-01 11:22 | NUR ---
PT ENCOURAGED TO USE INCENTIVE SPIROMETER. PT WAS ABLE TO REACH 2750 ML X 20 TIMES WITH NO COUGH OR SOB NOTED. RESP EVEN AND UNLABORED. O2 N/C IN PLACE. DUE MEDS GIVEN. FLUIDS ENCOURAGED. CALL LIGHT WITHIN REACH.
[2019-01-01 12:26] VITALS: BP 130/64
--- NOTE | 2019-01-01 13:24 | NUR ---
PT SLEEPING BUT EASILY AROUSABLE TO VERBAL STIMULI. RESP EVEN AND UNLABORED. ON R/A. NO DISTRESS NOTED. DENIES PAIN AND DISCOMFORT AT THIS TIME. DUE MED GIVEN. CALL LIGHT WITHIN REACH.
--- NOTE | 2019-01-01 15:09 | NUR ---
REPORTED TO DR. QUEEN HV=[id number]. DR. QUEEN STATED THAT NS ORDER WILL BE D/C'D. PT MADE AWARE OF NEW ORDER.
[2019-01-01 15:58] VITALS: BP 127/65
--- NOTE | 2019-01-01 16:35 | NUR ---
PT SLEEPING IN BED BUT EASILY AROUSABLE TO VERBAL STIMULI. RESP EVEN AND UNLABORED. ON R/A. PT RECEIVED BREATHING TX FROM R/T. CALL [facility] WITHIN REACH.
--- NOTE | 2019-01-01 16:56 | NUR ---
PT UP IN CHAIR AT BEDSIDE. O2 SAT REMAINS STABLE ON RA. NO S/SX OF ACUTE DISTRESS.
--- NOTE | 2019-01-01 17:42 | NUR ---
PT RESTING IN BED BUT EASILY AROUSABLE. RESP EVEN AND UNLABORED. DENIES PAIN. NO DISTRESS NOTED. DUE MED GIVEN. CALL LIGHT WITHIN REACH.
--- NOTE | 2019-01-01 18:47 | NUR ---
PT IS AAOX4. RESP EVEN AND UNLABORED. NO DISTRESS NOTED. PT ON O2 N/C AT 2LPM. TELE [address] READING NSR. NO C/O CHEST PAIN OR PRESSURE. LAL CATH IN PLACE, PATENT, DRAINING CLEAR LIGHT YELLOW URINE TO GRAVITY. IV CATH TO L HAND N/S REMOVED INTACT. SITE WNL. NO S/S OF INFECTION OR INFILTRATION. COVERED WITH GAUZE AND BANDAID. IV CATH TO LFA N/S LOCKED. SITE WNL. NO S/S OF INFECTION NOTED. COVERED WITH OCCLUSIVE CDI DRESSING. PT BEDDING AND CHUX CHANGED. PT DENIES PAIN AND DISCOMFORT. CALL LIGHT WITHIN REACH. BED IN LOWEST POSITION. FALL PROTOCOL FOLLOWED THROUGH OUT SHIFT. WILL ENDORSE ALL CARE TO LC RN.
--- NOTE | 2019-01-01 19:00 | NUR ---
RECEIVED REPORT FROM JAMIE. ASSUMING ALL CARE
[2019-01-01 19:14] VITALS: BP 124/63
--- NOTE | 2019-01-01 19:16 | NUR ---
RECEIVED PT LAYING IN BED. PT IS A/OX4. SPEECH IS CLEAR. ABLE TO MAKE NEEDS KNOWN. GCS=15. DENIES JACKSON. NO FACIAL DROOP NOTED. EENT FREE OF DISCHARGE. ORAL MUCOSA PINK AND MOIST. NO JVD NOTED. BREATHING IS E/U ON RA. LUNGS SOUND CLEAR TO BUL AND DIMIN TO BLL. SYMMETRICAL CHEST EXPANSION NOTED. S1/S2 HEART SOUNDS AUSCULTATED. CHEST WALL EQUAL AND SYMMETRICAL. DENIES ANY DIZZINESS/CP. HR 101, BP 124/63, MAP 82. PALPABLE PULSES X4 EXTREMITIES. SKIN IS WARM AND DRY. NO EDEMA NOTED. LFA IV IS IN PLACE, SALINE LOCKED. CAP REFILL < 3 SECS. NO JOINT SWELLING/DEFORMITY NOTED. ACTIVE FUL ROM X4 EXTREMITIES. PT IS ON REGULAR DIET. NO N/V NOTED. ABD IS SOFT, FLAT, NONTENDER TO PALPATION. BOWEL SOUNDS ACTIVE X4 QUADRANTS. LAL IS INTACT/SECURED, DRAINING VIA GRAVITY WITH YELLOW COLORED URINE. NO LABIAL EDEMA NOTED. SKIN IS INTACT. PT ABLE TO REPOSITION SELF INDEPENDENTLY. PT IS CALM AT THIS TIME. DENIES ANY SI/HI. BED IN LOW POSITION. CALL LIGHT IN REACH. WILL CONT TO MONITOR
--- NOTE | 2019-01-01 20:08 | NUR ---
RT VAUGHAN AT BEDSIDE FOR BREATHING TREATMENT
[2019-01-01 23:02] VITALS: BP 117/58
--- NOTE | 2019-01-02 00:05 | NUR ---
RT AT BEDSIDE FOR BREATHING TREATMENT
--- NOTE | 2019-01-02 02:06 | NUR ---
PT'S BREATHING IS E/U ON RA. RISE AND FALL OF CHEST NOTED. NO S/S OF ACUTE DISRESS NOTED. BED IN LOW POSITION. CALL LIGHT IN REACH. WILL CONT TO MONITOR
[2019-01-02 03:20] VITALS: BP 125/65
--- NOTE | 2019-01-02 04:55 | NUR ---
AIR INTELLIGENCE SPECIALIST AT BEDSIDE FOR AM LAB DRAW
--- NOTE | 2019-01-02 05:27 | NUR ---
REPORT GIVEN TO AJ GROSS FOR CONTINUITY OF CARE. ALL QUESTIONS/CONCERNS ADDRESSED AT THIS TIME.
[2019-01-02 05:37] LABS: BASOPHIL % 0.5 % (0-2); PLATELET COUNT 180 x10^3mcL (130-400)
[2019-01-02 05:40] LABS: CALCIUM 8.6 mg/dL (8.5-10.1); CARBON DIOXIDE 29.2 mmol/L (21-32); CHLORIDE SERUM 110 mmol/L (98-107); CREATININE SERUM 0.4 mg/dL (0.6-1.0); GFR1 > 60 mL/min; GLUCOSE SERUM 107 mg/dL (74-106); MAGNESIUM 1.9 mg/dL (1.8-2.4); PHOSPHOROUS 3.2 mg/dL (2.5-4.9); POTASSIUM SERUM 3.5 mmol/L (3.5-5.1); SODIUM SERUM 146 mmol/L (136-145)
[2019-01-02 05:42] LABS: RED CELL DISTRIBUTION WIDTH 14.7 % (11.5-14.5)
--- NOTE | 2019-01-02 06:58 | NUR ---
PT TRANSFERRED UPSTAIRS. PT IS A/OX4. SPEECH IS CLEAR. BREATHING IS E/U ON RA. LFA IV REMAINS IN PLACE WITH NO S/S OF INFILTRATION NOTED. NO S/S OF ACUTE DISTRESS NOTED. AJ GROSS TO ASSUME CARE.
--- NOTE | 2019-01-02 06:58 | NUR ---
PT TRANSFERRED TO [facility]OM[facility]ANIED BY KRISSY GROSS VIA WHEELCHAIR. ALL BELONGINGS TAKEN WITH PT.
--- NOTE | 2019-01-02 07:02 | NUR ---
RECEIVED PT FROM ICU. PT IN NO ACUTE DISTRESS. RR EVEN AND UNLABORED. IV PATENT. CALL LIGHT WITHIN REACH, BED IN LOW POSITION. SITTER AT BEDSIDE. ORIENTED PT TO ROOM AND SURROUNDINGS. WILL CONTINUE TO MONITOR.
[2019-01-02 08:17] VITALS: BP 144/75
[2019-01-02 10:48] VITALS: BP 144/75
[2019-01-02 11:54] VITALS: BP 118/63
[2019-01-02 16:40] VITALS: BP 111/61
--- NOTE | 2019-01-02 19:21 | NUR ---
REPORT GIVEN TO AIRCRAFT FUELER NURSE AT THE BEDSIDE, PT RESTING COMFORTABLY, AWAKE AND ALERT. IN NAD, CARE ENDORSED
--- NOTE | 2019-01-02 19:51 | NUR ---
RECEIVED PT FROM PREVIOUS SHIFT. PT A/OX4. DENIES PAIN. DENIES SOB ON RA. PT REQUESTING NICOTINE PATCH. DR COLUNGA. IVS PATENT, CDI. CALL LIGHT WITHIN REACH, BED IN LOW POSITION. SITTER AT BEDSIDE. WILL CONTINUE TO MONITOR.
[2019-01-02 21:15] VITALS: BP 108/60
--- NOTE | 2019-01-03 00:44 | NUR ---
PT RESTING IN NO ACUTE DISTRESS. RR EVEN AND UNLABORED. CALL LIGHT WITHIN REACH, BED IN LOW POSITION. WILL CONTINUE TO MONITOR.
[2019-01-03 04:58] VITALS: BP 141/64
[2019-01-03 07:11] LABS: BASOPHIL % 0.5 % (0-2); PLATELET COUNT 201 x10^3mcL (130-400); RED CELL DISTRIBUTION WIDTH 14.4 % (11.5-14.5)
[2019-01-03 07:34] LABS: CALCIUM 8.9 mg/dL (8.5-10.1); CARBON DIOXIDE 25.4 mmol/L (21-32); CHLORIDE SERUM 109 mmol/L (98-107); CREATININE SERUM 0.3 mg/dL (0.6-1.0); GFR1 > 60 mL/min; GLUCOSE SERUM 98 mg/dL (74-106); PHOSPHOROUS 3.9 mg/dL (2.5-4.9); POTASSIUM SERUM 3.7 mmol/L (3.5-5.1); SODIUM SERUM 145 mmol/L (136-145)
--- NOTE | 2019-01-03 07:50 | NUR ---
AT 0715 - RECEIVED PATIENT FROM NIGHT NURSE. AWAKE, ALERT AND APPEARS ORIENTED. MONITOR SHOWING SINUS RHYTHM; RATE 90. 1:1 SITTER IN ROOM WITH PATIENT FOR 5150. LAL CATHETER DRAINING PALE YELLOW URINE. AT 0740 - PATIENT EATING BREAKFAST. APPEARS CALM AND PLEASANT. SEEN BY GRAY MIXING OPERATOR PETERS.
--- NOTE | 2019-01-03 07:53 | NUR ---
RECEIVED ORDERS FOR DISCONTINUATION OF LAL CATHETER. PATIENT ENCOURAGED TO USE INSENTIVE SPIROMETER.
[2019-01-03 07:55] VITALS: BP 137/70
[2019-01-03] MEDS ORDERED: LEVAQUIN750 MG PO (11:02)
[2019-01-03 12:10] VITALS: BP 138/60
--- NOTE | 2019-01-03 12:42 | NUR ---
AT 0820 - LAL CATHETER REMOVED PER ORDERS. PATIENT ENCOURAGED TO AMBULATE. AT 0950 - C/O BACK PAIN, REQUESTING NORCO WHICH HAS BEEN DISCONTINUED. SPOKE WITH OBSTETRICS NURSE FRAN WHO IS ORDERING TORADOL. AT 1027 - MEDICATED WITH TORADOL 15 MG PER EMAR FOR BACK PAIN. AT 1210 - RCEIVED DISCHARGE ORDERS. PATIENT SAYS THAT SHE HAS HER CAR IN THE PARKING LOT AND WANTS TO DRIVE SELF HOME. REQUESTING OBSTETRICS NURSE TO SPEAK WITH PATIENT.
[2019-01-03 12:55] VITALS: BP 138/60
--- NOTE | 2019-01-03 14:39 | NUR ---
AT 1400 - PATIENT HAS AMBULATED TO BATHROOM. VOIDED POST LAL CATHETER REMOVAL. HAS BEEN SEEN BY BLANCA. ANNE FOR PATIENT TO DRIVE SELF HOME. PATIENT TAKEN OFF CARDIAC MONITORING. IV CATHETER X 2 REMOVED INTACT. PREPARED FOR DISCHARGE. AT 1430 - PRINTED DISCHARGE INSTRUCTIONS GIVEN AND EXPLAINED TO PATIENT.
--- NOTE | 2019-01-03 15:04 | NUR ---
AT 1450 - DISCHARGED HOME ALONE. TAKEN TO DISCHARGE OFFICE BY NURSE.
--- NOTE | 2019-01-11 05:02 | NUR ---
LATE ENTRY. PATIENT WAS RECEIVED AT 1900 WITH RESTRAINTS OFF,SHE WAS RESTLESS BUT EASILY RE-DIRECTED. 0 PATIENT PULLED ALL WIRES AND THE BIPAP. PATIENT INTUBATED AT [address] SHE WENT TO ICU WITH SAME AT 0100.
== END 2019-01-03 14:52 | disposition home health service (06) | DRG 208 ==
LOC: ED 03:34 → DU 22:44 → IC 22:44 → DU 01-02 06:57
PROVIDERS: Emergency Medicine; General Practice; ADMIT Internal Medicine
PROC: 5A1945Z Respiratory Ventilation, 24-96 Consecutive Hours (ICD-10-PCS; principal; 2018-12-28)
PROC: 0BH17EZ Insertion of Endotracheal Airway into Trachea, Via Natural or Artificial Opening (ICD-10-PCS; 2018-12-28)
DX: J69.0 Pneumonitis due to inhalation of food and vomit (principal); J96.01 Acute respiratory failure with hypoxia; N17.0 Acute kidney failure with tubular necrosis; E43 Unspecified severe protein-calorie malnutrition; E87.0 Hyperosmolality and hypernatremia; R45.851 Suicidal ideations; Z68.1 Body mass index [BMI] 19.9 or less, adult; J98.11 Atelectasis; F10.239 Alcohol dependence with withdrawal, unspecified; I16.0 Hypertensive urgency; F10.229 Alcohol dependence with intoxication, unspecified; F12.10 Cannabis abuse, uncomplicated; F43.10 Post-traumatic stress disorder, unspecified; F31.9 Bipolar disorder, unspecified; T43.222A Poisoning by selective serotonin reuptake inhibitors, intentional self-harm, initial encounter; Y92.018 Other place in single-family (private) house as the place of occurrence of the external cause; Y90.0 Blood alcohol level of less than 20 mg/100 ml
CPT/HCPCS: 36600; 82962; 85378; 87107; 94150; 97116-GP; 97530-GP; A4628; G0378; G0480; J0360; J1885; J2250; J2405; J2543; J2704; J2930; J3010; J3480; J3490; J7030; J7512; J7613; J7620; J7626; J7644; Q0092; Q9967